=== PATIENT | female | born 1995 | race African-American/Black ===

== ENCOUNTER → 2021-04-17 11:17 | Outpatient (CLI) | payer BC, SELFPAY ==
--- NOTE | ~2021-04-17 | US_ITS ---
EXAMINATION: US OB transvaginal DATE: 04/17/2021 11:47 INDICATION: Spotting during first trimester TECHNIQUE: Real-time pelvic transabdominal and transvaginal ultrasound was performed. COMPARISON: None. FINDINGS: The uterus measures 10.2 x 6.3 x 6.2 cm. There is an intrauterine gestational sac. A yolk sac is identified. heart motion is identified measuring 168 beats per minute (bpm) by M-mode Do ppler. The crown rump length measures 1.6 cm , which correlates with an estimated gestational a ge of 8 weeks and 0 day(s) (+/-) 5 day(s). The right ovary measures 3.5 x 1.6 x 3.1 cm. The left ovary measures 4.5 x 3.1 x 4.8 cm and contains a 3.4 cm cyst. There is normal vascular flow in the ovaries. There is no free fluid in the pelvis. IMPRESSION: 1. Live intrauterine with an estimated gestational age of 8 weeks and 0 day(s) (+/-) 5 day( s) and an estimated delivery date of 11/27/2021. Reviewed, dictated and finalized at location A. IMPRESSION: 1. Live intrauterine with an estimated gestational age of 8 weeks and 0 day(s) (+/-) 5 day(s) and an estimated delivery date of 11/27/2021.
== END ==
PROVIDERS: Visit Provider Obstetrics & Gynecology
DX: O26.851 Spotting complicating pregnancy, first trimester (principal); Z3A.01 Less than 8 weeks gestation of pregnancy
CPT/HCPCS: 76817

== ENCOUNTER → 2021-07-30 10:06 | Outpatient (CLI) | payer BC, SELFPAY ==
--- NOTE | ~2021-07-30 | US_ITS ---
EXAMINATION: US OB /maternal detail EXAM DATE: 07/30/2021 11:06 INDICATION: Encounter for screening, unspecified. 2nd trimester. TECHNIQUE: Pelvic obstetrical transabdominal sonogram was performed by a technologist. There are mu ltiple grayscale and Doppler images available for interpretation. Comparison is made to prior examina tion from 04/17/2021. FINDINGS: There is a single fetus identified in breech transverse presentation with a heart rate of 1 30 beats per minute. The placenta is located in the posterior position. There is no sonographic evid ence of retroplacental hemorrhage identified. There is subjectively expected amount of amniotic fluid . BIOMETRIC DATA: Biparietal diameter (BPD): 5.4 cm ----------------> 22 weeks 6 days. Head circumference (HC): 20.4 cm ----------------> 22 weeks 3 days. Abdominal circumference (AC): 18.0 cm ----------> 22 weeks 6 days. Femur length (FL): 4.2 cm --------------------------> 23 weeks 4 days. These measurements are concordant. HC/AC ratio is 1.13 (The 5th -- 95th percentile range is 1.05-1.21. Estimated weight is 561 g +/- 84 g. This is the 54th percentile when the currently reported cl inical gestation age 22 weeks 6 days, clinical estimated date of delivery (HOLA-OPE) 11/27/2021 is used. estimated gestational age based on measurements from this exam is 23 weeks 0 days, with an est imated date of delivery (HOLA-AUA) 11/26. ANATOMIC SURVEY: The following anatomy is identified and is sonographically normal in appearance: Cerebral ventricles Cerebellum Cisterna magna Nuchal fold Cavum septum pellucidum CTL-spine Four-chamber heart LVOT Diaphragm Stomach Kidneys Bladder Three-vessel cord Cord insertion Nose/lips Extremities IMPRESSION: 1. Single fetus in vertex presentation with heart rate 130 beats per minute. 2. Estimated weight of 1561 grams, 54th percentile using the currently reported clinical gesta tion age of 22 weeks 6 days, HOLA(OPE) 11/27. 3. Visualized anatomy normal. Poorly visualized right ventricular outflow tract due to p osition. Reviewed, dictated and finalized at location B. IMPRESSION: 1. Single fetus in vertex presentation with heart rate 130 beats per minute. 2. Estimated weight of 1561 grams, 54th percentile using the currently r eported clinical gestation age of 22 weeks 6 days, HOLA(OPE) 11/27. 3. Visualized anatomy normal. Poorly visualized right ventricular outflo w tract due to position.
== END ==
PROVIDERS: Visit Provider Obstetrics & Gynecology
DX: Z34.92 Encounter for supervision of normal pregnancy, unspecified, second trimester (principal); Z3A.22 22 weeks gestation of pregnancy
CPT/HCPCS: 76805

== ENCOUNTER → 2021-10-08 13:54 | Outpatient (CLI) | payer BC, SELFPAY ==
--- NOTE | ~2021-10-08 | US_ITS ---
EXAMINATION: US OB follow up DATE: 10/08/2021 15:13 INDICATION: Size greater than dates during third trimester TECHNIQUE: Real-time ultrasound of the pelvis was performed. The interpreting radiologist was not pre sent for the study. COMPARISON: 07/30/2021 FINDINGS: There is a single living fetus in breech presentation. The placenta is posterior. car diac activity and movement are noted. heart rate is 163 beats per minute (bpm). The amnio tic fluid index is 14.9 cm which is normal. The following biometric data were obtained: Biparietal diameter (BPD): 8.5 cm; head circumference (HC): 29.8 cm; abdominal circumference (AC): 29 .5 cm; femur length (FL): 6.1 cm. These measurements are concordant. Estimated weight is 2105 g +/- 315 g, which correlates with the 46th percentile when 11/27/2021 i s used as estimated date of delivery. As single measurements, these parameters are each equal to the following estimated gestational ages w ith ranges of +/- 2 standard deviations: BPD: 34 weeks 2 days ( 31 weeks 2 days - 37 weeks 3 days). HC: 33 weeks 1 days ( 30 weeks 1 days - 36 weeks 0 days). AC: 33 weeks 4 days ( 30 weeks 4 days - 36 weeks 3 days). FL: 31 weeks 5 days ( 28 weeks 5 days - 34 weeks 5 days). estimated gestational age based solely on measurements from this exam is 33 weeks 1 days +/- 2 weeks 2 days. IMPRESSION: 1. Single living fetus in breech presentation. 2. Estimated weight is 2105 g +/- 315 g, which correlates with the 46th percentile when 2 is used as estimated date of delivery. 3. Normal amniotic fluid index. Reviewed, dictated and finalized at location B. ROLL INSPECTOR IMPRESSION: 1. Single living fetus in breech presentation. 2. Estimated weight is 2105 g +/- 315 g, which correlates with the 46th p ercentile when 11/27/2021 is used as estimated date of delivery. 3. Normal amniotic fluid index.
== END ==
PROVIDERS: Visit Provider Obstetrics & Gynecology
DX: O36.63X0 Maternal care for excessive fetal growth, third trimester, not applicable or unspecified (principal); Z3A.33 33 weeks gestation of pregnancy
CPT/HCPCS: 76816

== ENCOUNTER → 2021-10-30 11:49 | Outpatient (CLI) | payer BC, SELFPAY ==
--- NOTE | ~2021-10-30 | US_ITS ---
EXAMINATION: US right upper quadrant DATE: 10/30/2021 12:10 INDICATION: Right upper quadrant abdominal pain. Third trimester of . TECHNIQUE: Multiple grayscale and Doppler ultrasound images of the abdomen were obtained. COMPARISON: None FINDINGS: The pancreas is obscured by bowel gas. The liver is normal without focal lesion. No liver s urface nodularity. There is normal flow in main portal vein. The gallbladder is normal in size. No ga llstones or gallbladder wall thickening. There was no sonographic Rivers sign. The common duct is nor mal and measures 3 mm. IMPRESSION: 1. Normal right upper quadrant ultrasound. Reviewed, dictated and finalized at location A. [employer] LINGUIST
== END ==
PROVIDERS: Visit Provider Obstetrics & Gynecology Gynecology
DX: R10.11 Right upper quadrant pain (principal)
CPT/HCPCS: 76705

== ENCOUNTER 2021-11-24 21:01 | Inpatient (IN) | payer BC, SELFPAY ==
[2021-11-24 21:33] VITALS: BP 120/77; PULSE 119; RESP 18; TEMP 37.3
[2021-11-24 21:36] VITALS: BMI 32.1
[2021-11-24 21:47] LABS: Basophils Percent Auto 0.2 % (0.2-1.2); Eosinophils Percent Auto 0.4 % (0-4.4); Hematocrit 37.7 % (37.0-47.0); Immature Granulocyte Absolute 0.11 K/mm3 (0.00-0.031); Lymphocytes Absolute Auto 1.41 K/mm3 (0.9-3.2); Lymphocytes Percent Auto 12.7 % (18.3-44.2); Mean Corpuscular HGB Conc 34.5 g/dl (32-36); Mean Corpuscular Hemoglobin 31.9 pg (26-34); Mean Corpuscular Volume 92.6 fl (80-100); Mean Platelet Volume 10.8 fl (7.4-10.4); Monocytes Absolute Auto 0.9 K/mm3 (0.1-0.6); Monocytes Percent Auto 7.7 % (2.6-8.5); Neutrophils Absolute Auto 8.7 K/mm3 (1.3-6.7); Platelet Count Result 203 k/mm3 (150-375); Red Blood Count 4.07 M/mm3 (4.2-5.4); White Blood Count 11.1 K/mm3 (4.5-10.0)
[2021-11-24] MEDS: DINOPROSTONE 10 MG VAG INSERT VAGINAL (21:58)
[2021-11-24 22:02] VITALS: BP 117/83; PULSE 117
[2021-11-24 22:31] VITALS: BP 103/65; PULSE 111
--- NOTE | 2021-11-24 22:31 | LDADM ---
This patient, Brittany Gilliland, was admitted to Labor/Delivery/Recovery 107 on 11/24/21 at 21:01. Plans for labor, pain management and were discussed with patient. Patient/family oriented to hospital policies and general routines including ID bracelet, bed and alarms, visiting hours, pain management, procedures, bathroom and other care routines, personal items, smoking policy, room service/diet and guest tray routines, security routines, and visiting hours. Patient/Family are encouraged to report perceived risks to care and to ask questions if they do not understand what they are told or what they should do. See OBIX for further documentation.
[2021-11-24 23:01] VITALS: BP 100/64; PULSE 120
--- NOTE | 2021-11-24 23:25 | WPDANESEPP ---
Anes - Eval Pre Procedure Procedure: labor epidural Date/Time: 11/24/21 23:25 Surgeon: casandar Preop Diagnosis: pain during labor Pre Op Diagnosis: IOL Patient Data Age: 26 Gender: F Height: 1.63 m Weight: 85 kg Last Vital Signs Temp 37.3 C 11/24/21 21:33 Pulse 120 H 11/24/21 23:01 Resp 18 11/24/21 21:33 BP 100/64 11/24/21 23:01 Allergies Allergy/AdvReac Type Severity Reaction Status Date / Time No Known Allergies Allergy Verified 10/29/21 13:44 Home Medications Medication Instructions Recorded Confirmed Type PNV cmb#95-ferrous fumarate-FA 1 tablet PO DAILY 10/29/21 10/29/21 History [] aspirin 81 mg PO DAILY 10/29/21 10/29/21 History ferrous sulfate [Iron (ferrous 325 mg PO DAILY 10/29/21 10/29/21 History sulfate)] Laboratory Tests 11/24/21 11/24/21 21:29 21:29 WBC 11.1 K/mm3 H K/mm3 (4.5-10.0) RBC 4.07 M/mm3 L M/mm3 (4.2-5.4) Hgb 13.0 g/dL g/dL (12.0-15.0) Hct 37.7 % % (37.0-47.0) MCV 92.6 fl fl (80-100) MCH 31.9 pg pg (26-34) MCHC 34.5 g/dl g/dl (32-36) RDW 14.0 % % (11.5-14.5) Plt Count 203 k/mm3 k/mm3 (150-375) MPV 10.8 fl H fl (7.4-10.4) Immature Gran % (Auto) 1.0 % H % (0-0.5) Neut % (Auto) 78.0 % H % (45.5-73.1) Lymph % (Auto) 12.7 % L % (18.3-44.2) [place] % (Auto) 7.7 % % (2.6-8.5) Eos % (Auto) 0.4 % % (0-4.4) Baso % (Auto) 0.2 % % (0.2-1.2) Lymph # (Auto) 1.41 K/mm3 K/mm3 (0.9-3.2) [place] # (Auto) 0.9 K/mm3 H K/mm3 (0.1-0.6) Eos # (Auto) 0.0 K/mm3 K/mm3 (0-0.3) Baso # (Auto) 0.0 K/mm3 K/mm3 (0.0-0.1) Abs Immat Gran (auto) 0.11 K/mm3 H K/mm3 (0.00-0.031) Absolute Neuts (auto) 8.7 K/mm3 H K/mm3 (1.3-6.7) Absolute Nucleated RBC 0.0 K/mm3 K/mm3 (0.0-0.012) Nucleated RBC % 0.0 % % (0.0-0.2) RPR Pending Patient hx anesthesia problems: none Family hx anesthesia problems: pseudocholinesterase deficiency Results Review: All pre-operative results and documents have been reviewed as part of the pre-operative evaluation. [facility] Past Medical History Medical History (Updated 11/24/21 @ 23:26 by Felecia Vogel CRNA) Intrauterine Obesity (BMI 30-39.9) Family History Family History (Updated 10/29/21 @ 13:[address] RN) Father Hypertension Mother Hypertension Ovarian cyst Sibling Ovarian cyst Social History Social History Smoking status: Never smoker Second hand tobacco smoke exposure: No Substance use: never Spiritual care concerns: No Exam Day of Procedure 11/24/21 23:25
[2021-11-24 23:31] VITALS: BP 118/69; PULSE 108
[2021-11-25] VITALS (21 sets, daily range): BP systolic 78–134; BP diastolic 27–81; PULSE 95–115; RESP 16–22; TEMP 36.6–37.6
--- NOTE | 2021-11-25 09:54 | WPDOBADMIT ---
Obstetrics - Admit Note Admission Note: record reviewed. No pertinent additions to the history and/or any subsequent changes in the physical findings that are not consistent with the expected course of the were found. AROM clear fluids /-2 vertex Additions to the history and/or subsequent changes in the physical findings follow. None.
[2021-11-25 11:48] LABS: Rapid Plasma Reagin Non-Reactive (NonReactive)
[2021-11-25] MEDS: LACTATED RINGERS 1,000 ML 125 ML IV CONT (18:36)
[2021-11-25] MEDS: OXYTOCIN 30 UNITS/NS 500 ML 30 UNITS/500 ML BAG 6 UNITS IV CONT (18:36)
[2021-11-26] VITALS (144 sets, daily range): BP systolic 97–144; BP diastolic 47–98; PULSE 96–156; RESP 16–18; TEMP 36.6–38.3; O2SAT 94–100
[2021-11-26] MEDS: fentaNYL CITRATE INJ (*CRX) 100 MCG/2 ML VIAL 50 MCG IV PUSH (00:05)
[2021-11-26] MEDS: LACTATED RINGERS 1,000 ML 125 ML IV CONT ×2 (02:02→04:40)
[2021-11-26] MEDS: fentaNYL CITRATE INJ (*CRX) 100 MCG/2 ML VIAL IV PUSH (02:15)
[2021-11-26] MEDS: AMPICILLIN 2 GM/NS 100 ML 2 GM/100 ML BAG IVPB (04:15)
--- NOTE | 2021-11-26 07:54 | P.PCNOB_ITS ---
OB - Delivery Note Procedure Delivery date: 11/26/21 events: Labor Induction Intrapartal events: None Induction method: AROM and per cervidil protocol Delivery monitor: external FHT and external uterine Route of delivery: Laceration Description: Perineal - 2nd Degree Delivery repair: vicryl Quantitative Blood Loss (ml): 280 Anesthesia type: Epidural Disposition: floor [place] Baby Date of : 11/26/21 Weeks of gestation at delivery: 40 gender: Female presentation: vertex position: Left Occiput Anterior Placenta delivery description: Spontaneous cord vessel description: 3 Vessels and Clamped/Cut
[2021-11-26] MEDS: OXYTOCIN 30 UNITS/NS 500 ML 30 UNITS/500 ML BAG 125 UNITS IV CONT (08:00)
--- NOTE | 2021-11-26 12:15 | PC.NURSE ---
Mother called out for assist with feeding, reporting some difficulties with latch and tenderness with first feeding. Infant is able to freely thrust tongue past gum ridge and flange both lips. Skin is intact on both nipples, no redness and bruising noted. Reviewed feeding cues, frequencies, duration of feedings, feeding elimination flow sheet, and signs of adequate intake. Demonstrated stimulation techniques to wake for feeding. Assisted with to breast. Reviewed positioning/alignment in cross cradle, holding breast in ?U? hold and guided asymmetrical latch on. Reviewed rational for each. Several attempts before was able to latch correctly. nursed eagerly with steady draws and occasional swallowing noted, some pausing noted. Reviewed signs of a correct latch, effective nursing and suck swallow ratio. Suggested mother stimulate while feeding to increase stimulation for milk supply, for increased intake and to assist with maintaining deep latch. would slip to shallow latch causing tenderness. Demonstrated how to adjust latch more deeply while feeding as needed. Mother reports she can feel the difference in latch with less tenderness. Mother grimaces at times with nipple pain, infant appears to be latch correctly and mother does not report change if attempts made to adjust latch. more deeply. Nipple care reviewed of lanolin after feedings, warm compresses as needed. Instructed mother to call out for RN assistance if she is unable to latch for feeding or she has discomfort with nursing. Instructed feeding should be initiated three hours from start of last feeding or if feeding cues are noted before. Mother voiced understanding of information shared.
[2021-11-26] MEDS: IBUPROFEN 600 MG TABLET PO (22:58)
[2021-11-27] VITALS: BP 130/84; PULSE 94; RESP 18; TEMP 36.5
[2021-11-27 04:00] VITALS: BP 113/76; PULSE 82; RESP 18; TEMP 36.8
[2021-11-27 04:48] LABS: Hematocrit 31.7 % (37.0-47.0); Hemoglobin 10.6 g/dL (12.0-15.0)
[2021-11-27 11:00] VITALS: PULSE 82; RESP 18; O2SAT 99
--- NOTE | 2021-11-27 11:11 | PM.OBPNVD ---
OB - PN: Subj Subjective Date/time seen: 11/27/21 10:05 Narrative: PPD#1 Brittany reports doing well today. Her bleeding is light. Her pain is controlled. She is tolerating regular diet, voiding, passing gas, and ambulating without issues. She is breast feeding. She would like to go home tomorrow. OB - PN: Obj Data Labs CBC & Chem 7: 11/27/21 04:02 Labs: Laboratory Results - last 24 hr 11/27/21 04:02 Hgb 10.6 L Hct 31.7 L OB - PN A/P Assessment and Plan (1) Normal vaginal delivery: Code(s): O80 - Encounter for full-term uncomplicated delivery Status: Acute Plan day: 1 Plan: routine care and discharge home (tomorrow) Comments: - Pelvic rest; take meds as prescribed - ER return precautions: fever, n/v/abd pain, bleeding, HTN Time Spent With Patient Time: Total time spent is greater than 50% in coordination of care (as documented) at patient's floor/unit and/or counseling patient: Review of Systems Constitutional: Constitutional: Denies chills, Denies fever(s) and Denies headache(s) Eyes: Eyes: Denies change in vision ENT: Denies dizziness and Denies headache(s) Cardiovascular: Cardiovascular: Denies chest pain, Denies palpitations and Denies dyspnea Respiratory: Respiratory: Denies cough and Denies dyspnea Gastrointestinal: Gastrointestinal: Denies nausea and Denies vomiting Neurologic: Denies dizziness and Denies headache(s) Endocrine: Endocrine: Denies palpitations Exam Const: General: cooperative, comfortable and no acute distress Orientation/consciousness: patient oriented x3 Resp: Effort & Inspection: normal respiratory effort Auscultation: clear to auscultation bilaterally Cardio: Rate: regular rate GI: Inspection: non-distended GI Palp: No abdominal tenderness and Yes Soft to palpation Auscultation: normal bowel sounds : Other: fundus firm Skin: General skin exam: normal color Neuro: General: patient oriented x3 Extrem: General: normal to inspection Psych: Appearance: grossly normal Affect: normal affect Attitude: cooperative
[2021-11-27] MEDS: DOCUSATE SODIUM 100 MG CAPSULE PO (16:06)
[2021-11-27] MEDS: IBUPROFEN 600 MG TABLET PO (16:06)
[2021-11-27 19:16] VITALS: BP 116/79; PULSE 88; RESP 18; TEMP 36.4
--- NOTE | 2021-11-27 22:42 | PC.NURSE ---
11/27/2021 at 1999 Patient viewed the discharge video Mother & Baby Care, The First Two Weeks . Patient was given the opportunity and encouraged to ask questions. Patient verbalized understanding of information shared and has been given the mother/baby guide for home reference.
[2021-11-28 07:25] VITALS: BP 133/80; PULSE 76; RESP 18; TEMP 36.1
--- NOTE | 2021-11-28 08:15 | PM.OBDSVD ---
DS: Admitting Diagnosis Discharge Date 11/28/21 Admitting Diagnosis Induction of labor DS: Discharge Diagnosis Discharge Diagnosis (1) Normal vaginal delivery: Code(s): O80 - Encounter for full-term uncomplicated delivery Status: Acute OB - DS: Summary OB Procedures : Ultrasound OB Procedures Intrapartum: Spontaneous Vag Delivery OB Procedures: : None Peripartum Data Delivery Method: Natural Vaginal Laceration Description: Perineal - 2nd Degree complications: none 1: Gender: Female Disposition of : home Status at Discharge Functional status at discharge: independent ambulation Overall status at discharge: patient is back to baseline Time Spent with Patient Time attestation: Total time spent providing and/or coordinating discharge services: Exam Const: General: cooperative, healthy appearing, comfortable and no acute distress Orientation/consciousness: patient oriented x3 Resp: Effort & Inspection: normal respiratory effort Auscultation: clear to auscultation bilaterally Cardio: Rate: regular rate GI: Inspection: non-distended GI Palp: No abdominal tenderness and Yes Soft to palpation Auscultation: normal bowel sounds : Other: fundus firm Skin: General skin exam: normal color Neuro: General: patient oriented x3 Extrem: General: normal to inspection Psych: Appearance: grossly normal Affect: normal affect Attitude: cooperative DS: Data Data Completed and Pending Pending studies at discharge: Pending at discharge 11/26/21 07:29 Surgical [PTH] Routine Discharge Plan Discharge Attending physician on discharge: Tonya Joyce Discharging Clinician: Tonya oJyce Anticipated Discharge Date/Time: 11/28/21 11:00 Patient Disposition: Home, Self-Care Activity: may shower, may drive after 2 weeks and pelvic rest Diet: regular Patient Instructions: Antibiotic Form Stand Alone Forms: General Discharge Information Follow-up/Referrals: Sky Ordoñez MD [Physician] - 6 Weeks Discharge Medications: New acetaminophen [Mapap (acetaminophen)] 325 mg Tablet 650 mg PO Q6H PRN (Reason: Mild Pain (1-3) Or Headache) 10 Days Qty: 60 RF: 0 docusate sodium 100 mg Capsule 100 mg PO BID PRN (Reason: Constipation) 30 Days Qty: 60 RF: 0 ibuprofen 600 mg Tablet 600 mg PO Q6H PRN (Reason: Cramping) 10 Days Qty: 40 RF: 0 Continued PNV cmb#95-ferrous fumarate-FA [] 28 mg iron- 800 mcg Tablet 1 tablet PO DAILY 90 Days Qty: 90 RF: 0 ferrous sulfate [Iron (ferrous sulfate)] 325 mg (65 mg iron) Tablet 325 mg PO DAILY 90 Days Qty: 90 RF: 0 Discontinued aspirin 81 mg Tablet 81 mg PO DAILY RF: 0 Date of admission: 11/24/21 21:01 Primary Care Provider: PHYSICIAN,HEAD OF MUSIC Admitting Provider: Sky Ordoñez Attending physician on admission: Sky Ordoñez Condition: Stable
[2021-11-28] MEDS: DOCUSATE SODIUM 100 MG CAPSULE PO (08:30)
[2021-11-28] MEDS: IBUPROFEN 600 MG TABLET PO (08:30)
== END 2021-11-28 11:51 | disposition home or self-care (01) | DRG 807 ==
LOC: ANHOB2 11-27 11:13 → ANHLDR 12-01 09:42 → ANHOB2 12-01 09:42
PROVIDERS: Admitting Provider Obstetrics & Gynecology; Visit Provider Obstetrics & Gynecology
DX: O76 Abnormality in fetal heart rate and rhythm complicating labor and delivery (principal); Z37.0 Single live birth; O70.1 Second degree perineal laceration during delivery; Z3A.40 40 weeks gestation of pregnancy
CPT/HCPCS: 36415; 85014; 85018; 85025; 86592; 86850; 86900; 86901; 88307; A9270; J0290; J2590; J2795; J3010; J7120

== ENCOUNTER → 2023-03-03 15:39 | Outpatient (CLI) | payer BC, SELFPAY ==
--- NOTE | ~2023-03-03 | US_ITS ---
EXAMINATION: US OB <=14 wk fetus w TV DATE: 03/03/2023 16:00 INDICATION: First trimester dating TECHNIQUE: Real-time pelvic transabdominal and transvaginal ultrasound was performed. COMPARISON: None. FINDINGS: The uterus measures 7.5 x 5.5 x 7.5 cm. There is an intrauterine gestational sac. A yolk sa c is identified. heart motion is identified measuring 175 beats per minute (bpm) by M-mode Dopp ler. The crown rump length measures 2 cm, which correlates with an estimated gestational age of 8 weeks and 4 day(s) (+/-) 5 day(s). The left ovary is not visualized however no left adnexal abnormality is seen. The right ovary measure s 2.7 x 1.7 x 1.5 cm. There is normal vascular flow in the right ovary. There is no free fluid in the pelvis. IMPRESSION: 1. Live intrauterine with an estimated gestational age of 8 weeks and 4 day(s) (+/-) 5 day( s) and an estimated delivery date of 10/09/2023. Reviewed, dictated and finalized at location B. IMPRESSION: 1. Live intrauterine with an estimated gestational age of 8 weeks and 4 day(s) (+/-) 5 day(s) and an estimated delivery date of 10/09/2023.
== END ==
PROVIDERS: PCP Registered Nurse; Visit Provider Registered Nurse
DX: Z34.90 Encounter for supervision of normal pregnancy, unspecified, unspecified trimester (principal); Z3A.08 8 weeks gestation of pregnancy
CPT/HCPCS: 76801; 76817

== ENCOUNTER → 2023-06-22 14:53 | Outpatient (CLI) | payer BC, SELFPAY ==
--- NOTE | ~2023-06-22 | US_ITS ---
EXAMINATION: US soft tissue head and neck DATE: 06/22/2023 15:03 INDICATION: Localized swelling, mass or lump along the right jawline TECHNIQUE: Multiple grayscale and Doppler ultrasound images of the region of concern along the right mandible were obtained. COMPARISON: None FINDINGS: 14 x 8 x 13 mm solid hypoechoic nodule in the superficial subcutaneous tissues at the region of ryne rn. Small amount of internal vascular flow is seen on color Doppler. No discernible internal echogeni c hilum to suggest a lymph node. IMPRESSION: 1. Indeterminate 1.4 cm solid subcutaneous nodule at the region of concern. Would consider ultrasound -guided core needle biopsy for further evaluation. Reviewed, dictated and finalized at location A. IMPRESSION: 1. Indeterminate 1.4 cm solid subcutaneous nodule at the region of concern. Woelsie ld consider ultrasound-guided core needle biopsy for further evaluation.
== END ==
PROVIDERS: PCP Registered Nurse; Visit Provider Registered Nurse
DX: R22.0 Localized swelling, mass and lump, head (principal)
CPT/HCPCS: 76536

== ENCOUNTER 2023-10-11 16:05 | Inpatient (IN) | payer BC, SELFPAY ==
[2023-10-11] VITALS (10 sets, daily range): BP systolic 89–130; BP diastolic 55–79; PULSE 74–175; TEMP 36.6–36.7; BMI 32.7
[2023-10-11 17:03] LABS: Basophils Percent Auto 0.4 % (0.2-1.2); Eosinophils Percent Auto 0.4 % (0-4.4); Hematocrit 35.3 % (37.0-47.0); Hemoglobin 11.6 g/dL (12.0-15.0); Immature Granulocyte Absolute 0.14 K/mm3 (0.00-0.031); Immature Granulocyte Percent A 1.5 % (0-0.5); Lymphocytes Absolute Auto 1.39 K/mm3 (0.9-3.2); Lymphocytes Percent Auto 14.6 % (18.3-44.2); Mean Corpuscular HGB Conc 32.9 g/dl (32-36); Mean Corpuscular Hemoglobin 29.7 pg (26-34); Mean Corpuscular Volume 90.5 fl (80-100); Mean Platelet Volume 10.7 fl (7.4-10.4); Monocytes Absolute Auto 0.8 K/mm3 (0.1-0.6); Monocytes Percent Auto 8.1 % (2.6-8.5); Neutrophils Absolute Auto 7.1 K/mm3 (1.3-6.7); Platelet Count Result 189 k/mm3 (150-375); Red Cell Distribution Width 13.7 % (11.5-14.5); White Blood Count 9.5 K/mm3 (4.5-10.0)
[2023-10-11] MEDS: OXYTOCIN 30 UNITS/NS 500 ML 30 UNITS/500 ML BAG IV CONT (17:22)
[2023-10-11] MEDS: LACTATED RINGERS 1,000 ML 125 ML IV CONT ×2 (17:23→21:46)
--- NOTE | 2023-10-11 18:05 | WPDANESEPP ---
Anes - Eval Pre Procedure Procedure: Labor epidural Date/Time: 10/11/23 18:05 Surgeon: Myles Preop Diagnosis: Abdominal pain with contractions Pre Op Diagnosis: IOL Patient Data Age: 28 Gender: F Height: 1.63 m Weight: 86.5 kg Last Vital Signs Temp 98.1 F 10/11/23 17:00 Pulse 91 10/11/23 18:00 BP 111/65 10/11/23 18:00 O2 Del Method Room Air 10/11/23 16:41 Allergies Allergy/AdvReac Type Severity Reaction Status Date / Time No Known Allergies Allergy Verified 10/10/23 08:43 Home Medications Medication Instructions Recorded Confirmed Type vit no.95-ferrous 1 tablet PO DAILY 90 days #90 tabs 11/27/21 10/11/23 Rx fumarate 28 mg-folic acid 800 mcg tablet () cholecalciferol (vitamin D3) 10 10 mcg PO DAILY 08/16/23 10/11/23 History mcg (400 unit) capsule Laboratory Tests 10/11/23 16:55 WBC 9.5 K/mm3 (4.5-10.0) RBC 3.90 L M/mm3 (4.2-5.4) Hgb 11.6 L g/dL (12.0-15.0) Hct 35.3 L % (37.0-47.0) MCV 90.5 fl (80-100) MCH 29.7 pg (26-34) MCHC 32.9 g/dl (32-36) RDW 13.7 % (11.5-14.5) Plt Count 189 k/mm3 (150-375) MPV 10.7 H fl (7.4-10.4) Immature Gran % (Auto) 1.5 H % (0-0.5) Neut % (Auto) 75.0 H % (45.5-73.1) Lymph % (Auto) 14.6 L % (18.3-44.2) [place] % (Auto) 8.1 % (2.6-8.5) Eos % (Auto) 0.4 % (0-4.4) Baso % (Auto) 0.4 % (0.2-1.2) Lymph # (Auto) 1.39 K/mm3 (0.9-3.2) [place] # (Auto) 0.8 H K/mm3 (0.1-0.6) Eos # (Auto) 0.0 K/mm3 (0-0.3) Baso # (Auto) 0.0 K/mm3 (0.0-0.1) Abs Immat Gran (auto) 0.14 H K/mm3 (0.00-0.031) Absolute Neuts (auto) 7.1 H K/mm3 (1.3-6.7) Absolute Nucleated RBC 0.0 K/mm3 (0.0-0.012) Nucleated RBC % 0.0 % (0.0-0.2) RPR Pending Blood Type O Positive Antibody Screen Negative : gestational age HCG: positive Patient hx anesthesia problems: none Family hx anesthesia problems: none Results Review: All pre-operative results and documents have been reviewed as part of the pre-operative evaluation. [facility] Past Medical History Medical History History of vaginal delivery Migraines Obesity (BMI 30-39.9) and not yet delivered Family History Family History Father Hypertension Mother Hypertension Ovarian cyst Depression Brachydactyly type A2 associated with mutation in BMP2 gene Sibling Ovarian cyst Grandparent Hypertension Heart disease Cerebrovascular accident Ovarian cancer Maternal Grandma Other Breast cancer Maternal Aunt Stomach cancer Paternal Uncle Social History Social History Smoking status: Never smoker Second hand tobacco smoke exposure: No Alcohol intake: never Substance use: never Lack of Transportation: No Lack of Food: Never True Current Housing: I Have Housing Concerned About Future Housing: No Difficulty Paying Gas/Electric Bills: No Difficulty Paying for Meds: No Currently Unemployed: No Education: Master's Degree or Higher Difficulty w/ Childcare or Family Care: No Living arrangements: with family Occupation/Education: occupation Gender identity (if verbalized by the patient): Female Sexual Orientation (if Verbalized by the Patient): Straight or Heterosexual Spiritual care concerns: No Exam Day of Procedure 10/11/23 18:05 Patient weight: overweight
--- NOTE | 2023-10-11 21:48 | PM.IMHP ---
H&P: HPI History of Present Illness Date/Time: 10/11/23 21:48 Chief Complaint: Induction of labor Narrative: Patient at 40 weeks admitted for MIL. PNC uncomplicated. Labs reviewed. Review of Systems Review of Systems: All systems reviewed & are unremarkable except as noted in HPI and below Constitutional: Constitutional: Reports no additional constitutional complaints and Denies headache(s) Eyes: Eyes: Denies spots in vision ENT: Reports system reviewed and no additional complaints, except as documented and Denies headache(s) Cardiovascular: Cardiovascular: Denies chest pain and Denies dyspnea Respiratory: Respiratory: Denies dyspnea Gastrointestinal: Gastrointestinal: Reports no additional gastrointestinal complaints Genitourinary: Genitourinary: Reports amenorrhea Musculoskeletal: Musculoskeletal: Reports no additional musculoskeletal complaints Integumentary/Breasts: Skin/Breast: Denies breast mass and Denies rash Neurologic: Denies headache(s) Psychiatric: Psychiatric: Reports no additional psychiatric complaints PMFSH Past Medical History Medical History History of vaginal delivery Migraines Obesity (BMI 30-39.9) and not yet delivered Family History Family History Father Hypertension Mother Hypertension Ovarian cyst Depression Brachydactyly type A2 associated with mutation in BMP2 gene Sibling Ovarian cyst Grandparent Hypertension Heart disease Cerebrovascular accident Ovarian cancer Maternal Grandma Other Breast cancer Maternal Aunt Stomach cancer Paternal Uncle Social History Social History Smoking status: Never smoker Second hand tobacco smoke exposure: No Alcohol intake: never Substance use: never Lack of Transportation: No Lack of Food: Never True Current Housing: I Have Housing Concerned About Future Housing: No Difficulty Paying Gas/Electric Bills: No Difficulty Paying for Meds: No Currently Unemployed: No Education: Master's Degree or Higher Difficulty w/ Childcare or Family Care: No Living arrangements: with family Occupation/Education: occupation Gender identity (if verbalized by the patient): Female Sexual Orientation (if Verbalized by the Patient): Straight or Heterosexual Spiritual care concerns: No Meds Home Medications and Allergies Home Medications Medication Instructions Recorded Confirmed Type vit no.95-ferrous 1 tablet PO DAILY 90 days #90 tabs 11/27/21 10/11/23 Rx fumarate 28 mg-folic acid 800 mcg tablet () cholecalciferol (vitamin D3) 10 10 mcg PO DAILY 08/16/23 10/11/23 History mcg (400 unit) capsule Allergies Allergy/AdvReac Type Severity Reaction Status Date / Time No Known Allergies Allergy Verified 10/10/23 08:43 Vital Signs Vital Signs - 24 hr 10/11/23 16:41 10/11/23 17:30 10/11/23 17:00 Temperature 98.1 F Pulse Rate 96 Blood Pressure 113/71 Oxygen Delivery Room Air 10/11/23 18:00 10/11/23 18:31 10/11/23 19:00 Temperature Pulse Rate 91 85 90 Blood Pressure 111/65 110/68 97/55 L Oxygen Delivery 10/11/23 19:31 Temperature Pulse Rate 175 H Blood Pressure 89/58 L Oxygen Delivery Exam Const: General: no acute distress Eyes: General: appearance normal, both eyes and all related structures Resp: Effort & Inspection: normal respiratory effort Cardio: Rate: regular rate GI: Other: Gravid no fundal tenderness no right upper quadrant pain Skin: General skin exam: no rashes or lesions noted Neuro: Cognition (Neuro): normal cognition Extrem: General: normal to inspection Psych: Mental Status: mental status grossly normal H&P: Results Labs Labs: Short CBC 10/11/23 Range/Units 16:55 WBC 9.5 (4
[2023-10-12] VITALS (127 sets, daily range): BP systolic 70–137; BP diastolic 43–106; PULSE 72–173; RESP 16; TEMP 36.4–37.3; O2SAT 97–100
[2023-10-12] MEDS: LACTATED RINGERS 1,000 ML 125 ML IV CONT (05:45)
[2023-10-12] MEDS: LACTATED RINGERS 1,000 ML 999 ML IV CONT (08:13)
[2023-10-12] MEDS: OXYTOCIN 30 UNITS/NS 500 ML 30 UNITS/500 ML BAG 125 UNITS IV CONT (12:11)
[2023-10-12 12:43] LABS: Rapid Plasma Reagin Non-Reactive (NonReactive)
[2023-10-12] MEDS: ACETAMINOPHEN 325 MG TABLET 650 MG PO ×2 (13:34→21:28)
[2023-10-12] MEDS: IBUPROFEN 600 MG TABLET PO ×2 (13:34→21:28)
[2023-10-12] MEDS: BENZOCAINE 20% AER SPR (*SP) 56 GM CAN 1 SPRAY TOPICAL (13:36)
[2023-10-12] MEDS: WITCH HAZEL 40 PADS 1 PAD TOPICAL (13:36)
--- NOTE | 2023-10-12 14:36 | OBPPTRN ---
Patient transferred to post room #291 via wheelchair. Support person present. Oriented to unit, room, information board, rooming in, admission packet and security measures. Patient verbalizes understanding.
[2023-10-12] MEDS: DOCUSATE SODIUM 100 MG CAPSULE PO (17:36)
[2023-10-13 04:50] VITALS: BP 109/66; PULSE 68; RESP 16; TEMP 36.6; O2SAT 100
[2023-10-13 04:58] LABS: Hematocrit 31.7 % (37.0-47.0); Hemoglobin 10.6 g/dL (12.0-15.0)
[2023-10-13] MEDS: ACETAMINOPHEN 325 MG TABLET 650 MG PO ×2 (05:30→13:25)
[2023-10-13] MEDS: IBUPROFEN 600 MG TABLET PO ×2 (05:30→13:26)
[2023-10-13 09:15] VITALS: BP 108/65; PULSE 78; RESP 16; TEMP 36.4; O2SAT 100
[2023-10-13] MEDS: MULTIVIT/MIN/PREN/FOL AC/IRON TABLET 1 TAB PO (09:23)
[2023-10-13] MEDS: DOCUSATE SODIUM 100 MG CAPSULE PO (09:23)
--- NOTE | 2023-10-13 09:47 | PM.OBPNVD ---
OB - PN: Subj Subjective Date/time seen: 10/12/23 0830 Cat 1 tracing, cervix 3.5/60/-3, AROM clear. Continue pitocin. OB - PN: Obj Data Labs 10/13/23 04:35 Labs: Laboratory Results - last 24 hr 10/11/23 10/13/23 16:55 04:35 Hgb 10.6 L Hct 31.7 L RPR Non-reactive OB - PN A/P Time Spent With Patient Time: Total time spent is greater than 50% in coordination of care (as documented) at patient's floor/unit and/or counseling patient:
--- NOTE | 2023-10-13 09:49 | P.PCNOB_ITS ---
OB - Vaginal Delivery Note Procedure Delivery date: 10/13/23 Events: Elective Induction of Labor Induction method: Per Pitocin Protocol Delivery augmentation: Rupture of Membranes Delivery monitor: External FHT Route of delivery: Episiotomy description: None Specimen: No Quantitative Blood Loss (ml): 200 Anesthesia type: Epidural Disposition: Floor Complications: No immediate complications Narrative: She was admitted the evening of October 11 for induction of labor her cervix was noted to be dilated. She did have an occasional variable and had episode of tachycardia which did improve with IV hydration. She was eventually started on Pitocin. The morning of October 12 she was 3.5 cm Pitocin was continued she did have assisted rupture of membranes with clear fluid she then progressed to active labor she did receive an epidural upon request. She did progress to complete and pushed several times and delivered a female over an intact perineum. The nose and mouth of the infant was suction at the perineum and the anterior shoulders were delivered with gentle traction and the rest the infant was delivered. The infant was vigorously crying upon delivery and placed on maternal abdomen delayed cord clamping for 60 seconds until the cord was a pulsatile and then the cord was doubly clamped and cut. Placenta delivered spontaneously and intact there was a small area of separation at the introitus which did not require suture hemostasis obtained with silver nitrate. [place] Baby Date of : 10/12/23 Time of : 11:41 Weeks of gestation at delivery: 40 gender: Female Weight (pounds): 8 Weight (ounces): 0 presentation: vertex position: Right Occiput Anterior Placenta delivery description: Spontaneous Cord Vessel Description: 3 Vessels score one minute: 8 score five minutes: 9 [facility] Delivery Billing Delivery Delivery: Delivery Charge
--- NOTE | 2023-10-13 10:29 | PM.OBPNVD ---
OB - PN: Subj Subjective Date/time seen: 10/13/23 10:29 Interval history: Hemorrhoid tenderness improving. She request discharge today. Patient comments: pain well controlled, tolerating diet and other (Decreasing lochia.) baby status: doing well and nursing well OB - PN: Obj Data Labs 10/13/23 04:35 Labs: Laboratory Results - last 24 hr 10/11/23 10/13/23 16:55 04:35 Hgb 10.6 L Hct 31.7 L RPR Non-reactive OB - PN A/P Plan day: 1 Plan: routine care Comments: Patient doing well. She request discharge. Discharge precautions discussed. Time Spent With Patient Time: Total time spent is greater than 50% in coordination of care (as documented) at patient's floor/unit and/or counseling patient: Exam Psych: Affect: normal affect Other: Abd: fundus firm below umbilicus, nontender Perineum: healing Ext: nontender
--- NOTE | 2023-10-13 13:50 | PC.NURSE ---
[id number] Introductions were made, then consulted with patient to assess needs related to . Mother led the conversation with her?plans to feed?her infant, the?experience so far and the 18 months of success with her first child. Resources provided for inpatient and outpatient services with the feeding sheet, laminated handouts in the room (waking infant, [id number], feeding cues), mom/baby guide and name written on the white board. Parents voiced understanding of information, demonstrated understanding and will call if there is a request for assistance. Reported to the Primary RN.
[2023-10-16 10:22] VITALS: BP 114/54; PULSE 89; RESP 18; TEMP 37.2; O2SAT 100
--- NOTE | 2023-11-06 10:35 | PM.OBDSVD ---
DS: Admitting Diagnosis Discharge Date 10/13/23 Admitting Diagnosis Induction of labor DS: Discharge Diagnosis Discharge Diagnosis (1) Vaginal delivery: Code(s): O80 - Encounter for full-term uncomplicated delivery Status: Acute OB - DS: Summary Hospital Course Hospital Course: She was admitted for induction of labor. She was noted to be in early labor. Labor was augmented with Pitocin. She had an uncomplicated vaginal delivery. She did well . Baby did well . She had adequate pain control. She requested discharge to home on day 1. OB Procedures : Ultrasound OB Procedures Intrapartum: Spontaneous Vag Delivery OB Procedures: : None Peripartum Data Delivery Method: Natural Vaginal Episiotomy description: None complications: none Status at Discharge Functional status at discharge: independent ambulation Time Spent with Patient Time attestation: Total time spent providing and/or coordinating discharge services: Exam Const: General: cooperative Orientation/consciousness: oriented to person, oriented to place and oriented to time HENMT: Face/Nose/Sinus: Normal external nose present Eyes: General: appearance normal, both eyes and all related structures Resp: Effort & Inspection: normal respiratory effort GI: Inspection: normal to inspection Skin: General skin exam: normal color Neuro: General: oriented to person, oriented to place and oriented to time Extrem: General: normal to inspection and no calf tenderness Psych: Appearance: grossly normal Mental Status: mental status grossly normal Discharge Plan Discharge Attending physician on discharge: Shamar Bueno Consulting providers: Brent Tillman Discharging Clinician: Shamar Bueno Patient Disposition: Home, Self-Care Activity: may shower and pelvic rest Diet: regular Discharge Instructions: Education: Mom and Baby Guide Given to: Mother Follow-Up: Call your delivering provider's office for an appointment to be seen in: 4 Weeks Mom and baby should come to the [facility] for the follow-up appointment. Appointment Date/Time: October 16, 2023 at 10:00 am What to expect at your follow-up visit: Physical Assessment Call [phone] if you are unable to keep your appointment time. BREAST CARE: * Wear a snug supportive bra. * For engorgement discomfort: Breast Feeding: * Apply warm moist washcloths * Express milk as needed to relieve engorgement * Wear loose clothing * For sore nipples: * Identify correct latch-on * Apply warm moist washcloths before and after nursing * Air dry nipples after nursing * May apply Lansinoh cream to nipples EPISIOTOMY/PERINEAL CARE: * Until bleeding stops, use your loren bottle after urinating * Change your pad frequently throughout the day * You may take sitz baths several times a day (fill your bathtub with warm water and soak for 20 minutes.) Do NOT bathe in the water * No tub baths until seen by your physician - You may shower ACTIVITY: * Rest as much as possible. * Do not exercise or lift anything heavier than your baby (such as laundry or other children.) * Avoid stairs or driving as much as possible. * Do not put anything into the vagina. No douching, tampons, or sexual activity until seen by physician. NOTIFY PHYSICIAN IF YOU HAVE ANY QUESTIONS OR IF ANY OF THE FOLLOWING SYMPTOMS OCCUR: * If your episiotomy or incision becomes red, swollen, or more painful than what you have experienced in the hospital. * If your vaginal bleeding becomes foul smelling. * If your vaginal bleeding becomes more heavy than a period or if your bleeding changes from pink to bright red. However, you may pass an occasional walnut-sized clot once or twice for the first week . * If you experience a sharp, shooting pain
== END 2023-10-13 17:45 | disposition home or self-care (01) | DRG 807 ==
LOC: ANHLDR 16:16 → ANHOB2 10-12 14:43
PROVIDERS: Admitting Provider Obstetrics & Gynecology; PCP Registered Nurse; Visit Provider Obstetrics & Gynecology
DX: O76 Abnormality in fetal heart rate and rhythm complicating labor and delivery (principal); Z37.0 Single live birth; O99.214 Obesity complicating childbirth; Z3A.40 40 weeks gestation of pregnancy
CPT/HCPCS: 36415; 85014; 85018; 85025; 86592; 86850; 86900; 86901; A9270; J2590; J2795; J7120

== ENCOUNTER 2023-11-08 10:11 | Outpatient (CLI) | payer BC, SELFPAY ==
--- NOTE | ~2023-11-08 | US_ITS ---
EXAMINATION: US biopsy lymph node DATE: 11/08/2023 10:59 INDICATION: Disorder of the skin and subcutaneous tissue. Right lower face mass. TECHNIQUE: The procedure including the risks, benefits, and alternatives was discussed with the patie nt. Risks discussed included bleeding and infection. The patient understood the risks and agreed to p roceed. The skin overlying the right lower face was prepped and draped in usual sterile fashion. Ane sthetic was administered with 1% lidocaine subcutaneously. An 18 gauge core biopsy needle was then u sed to obtain 3 core biopsy specimens under continuous sonographic guidance. The entry site was clean ed and dressed. There were no immediate complications. FINDINGS: Ultrasound images demonstrate the needle in a 1.8 x 1.8 x 1.2 cm subcutaneous hypoechoic ma ss in right lower face. IMPRESSION: 1. Ultrasound-guided core needle biopsy of a 1.8 cm subcutaneous mass in right lower face. Reviewed, dictated and finalized at location A. OID ARCHITECT
== END 2023-11-08 10:12 | disposition home or self-care (01) ==
PROVIDERS: PCP Family Medicine; Visit Provider Otolaryngology
DX: D23.9 Other benign neoplasm of skin, unspecified (principal)
CPT/HCPCS: 38505; 76942; 88305

== ENCOUNTER 2024-02-06 01:54 | Day surgery (SDC) | payer OTHER, SELFPAY ==
[2024-01-31 10:51] VITALS: BMI 30.9
--- NOTE | 2024-01-31 10:55 | PC.NURSE ---
Report to the Outpatient Waiting Room, entrance under the green pavilion located off [facility], at time 1030 on date 02/06/24. Planned Procedure Time: 1230. Time changes happen often and if your time is changed the preop area will call you the afternoon before. - You and your visitor will be asked to self-screen and do not enter if you have any COVID symptoms. - A mask is optional within the hospital at this time. Patients may have clear liquids (water, carbonated beverages, clear teas, apple juice) until 3 hours prior to surgery with a maximum of 20 ounces. - No food from midnight until time of surgery Take the following medications with a SIP of water the morning of surgery: CONTROL DO NOT STOP ANY OF YOUR OTHER PRESCRIPTION MEDICATIONS PRIOR TO SURGERY ?EXCEPT THE FOLLOWING Medications to discontinue per physician: VITAMINS Date to take last dose: 02/02/24 Please no make-up, nail eritrean, hairspray, perfume, deodorant, or body powder the day of surgery. No jewelry (including any body piercings) or valuables the day of surgery, leave them at home. Please take a shower or bath the night before, or the morning of, surgery with an antibacterial soap. Wear comfortable, loose fitting clothing. - Jewelry must be removed prior to entering the operating room. Rings and piercings that are not removed may be cut off. - The hospital will not accept responsibility for valuables. - Please leave all valuables, including medications, at home the day of surgery. If you are going home after surgery, a licensed chuck wagon driver must drive you home. - NO public transportation without another adult if you receive anesthesia. - We recommend that an adult stay with you for 24 hours following discharge. - We also recommend that you do not drive, make important decision, drink alcoholic beverages, or take any drugs that were not prescribed by your health care provider for at least 24 hours after your discharge time. Follow any additional instructions given to you from your surgeon. If you or anyone in your household have experienced Covid symptoms in the past week, please notify your surgeon or the nurse liaison at the phone number below for possible testing. Telephone instructions given to PT - DANILO FRANCISCO and asked if any additional questions and then verbalized understanding. Patient advised to call surgeon office or pre surgery nurse liaison [phone] if any additional questions.
--- NOTE | 2024-02-05 11:49 | WPDANESEPPF ---
Anes - Initial Pre Proc Eval Procedure: Operation Date: 02/06/24 12:45 Proposed Procedures p Excision of Right Facial Lesion Over Mandible - Lucio Lock MD Date/Time: 02/05/24 11:49 Surgeon: Lucio Lock MD Pre Op Diagnosis: right facial lesion (2cm) Patient Data Age: 28 Gender: F Height: 1.63 m Weight: 81.65 kg Allergies Allergy/AdvReac Type Severity Reaction Status Date / Time No Known Allergies Allergy Verified 02/06/24 10:55 Home Medications Medication Instructions Recorded Confirmed Type vit no.95-ferrous 1 tablet PO DAILY 90 days #90 tabs 11/27/21 01/31/24 Rx fumarate 28 mg-folic acid 800 mcg tablet () norethindrone (contraceptive) 0.35 0.35 mg PO DAILY #84 tabs 11/14/23 01/31/24 Rx mg tablet (Jojo) Patient hx anesthesia problems: none Family hx anesthesia problems: none Results Review: All pre-operative results and documents have been reviewed as part of the pre-operative evaluation. [facility] Past Medical History Medical History History of vaginal delivery x2 Migraines Obesity (BMI 30-39.9) and not yet delivered Family History Family History Father Hypertension Mother Hypertension Ovarian cyst Depression Brachydactyly type A2 associated with mutation in BMP2 gene Sibling Ovarian cyst Grandparent Hypertension Heart disease Cerebrovascular accident Ovarian cancer Maternal Grandma Other Breast cancer Maternal Aunt Stomach cancer Paternal Uncle Social History Social History Smoking status: Never smoker Second hand tobacco smoke exposure: No Alcohol intake: never Substance use: never Substance use type: does not use Lack of Transportation: No Lack of Food: Never True Current Housing: I Have Housing Concerned About Future Housing: No Difficulty Paying Gas/Electric Bills: No Difficulty Paying for Meds: No Currently Unemployed: No Education: Master's Degree or Higher Difficulty w/ Childcare or Family Care: No Living arrangements: with family Occupation/Education: occupation Gender identity (if verbalized by the patient): Female Sexual Orientation (if Verbalized by the Patient): Straight or Heterosexual Spiritual care concerns: No Anes - Eval Final PreProcedure Day of Procedure 02/05/24 11:49 Patient weight: obese Heart: regular rate and rhythm Lungs: clear to auscultation Airway: Mallampati scale class II Neurological: alert and oriented Last oral intake: >/= 8 hours ASA classification: II Emergent: no Anesthetic plan: proceed Anesthesia type and monitoring: general LMA and standard monitoring Results Review: All pre-operative results and documents have been reviewed as part of the pre-operative evaluation. Informed Consent: The patient's anesthetic plan and its attendant risks and benefits were discussed with the patient/family/POA. Questions were solicited and answers provided to the satisfaction of the patient/family/POA.
--- NOTE | 2024-02-05 16:54 | PM.IMHP ---
H&P: HPI History of Present Illness Date/Time: 02/05/24 16:54 Chief Complaint: Right facial lesion Narrative: planned procedure Review of Systems Review of Systems: All systems reviewed & are unremarkable except as noted in HPI and below [facility] Past Medical History Medical History History of vaginal delivery x2 Migraines Obesity (BMI 30-39.9) and not yet delivered Family History Family History Father Hypertension Mother Hypertension Ovarian cyst Depression Brachydactyly type A2 associated with mutation in BMP2 gene Sibling Ovarian cyst Grandparent Hypertension Heart disease Cerebrovascular accident Ovarian cancer Maternal Grandma Other Breast cancer Maternal Aunt Stomach cancer Paternal Uncle Social History Social History Smoking status: Never smoker Second hand tobacco smoke exposure: No Alcohol intake: never Substance use: never Substance use type: does not use Lack of Transportation: No Lack of Food: Never True Current Housing: I Have Housing Concerned About Future Housing: No Difficulty Paying Gas/Electric Bills: No Difficulty Paying for Meds: No Currently Unemployed: No Education: Master's Degree or Higher Difficulty w/ Childcare or Family Care: No Living arrangements: with family Occupation/Education: occupation Gender identity (if verbalized by the patient): Female Sexual Orientation (if Verbalized by the Patient): Straight or Heterosexual Spiritual care concerns: No Meds Home Medications and Allergies Home Medications Medication Instructions Recorded Confirmed Type vit no.95-ferrous 1 tablet PO DAILY 90 days #90 tabs 11/27/21 01/31/24 Rx fumarate 28 mg-folic acid 800 mcg tablet () norethindrone (contraceptive) 0.35 0.35 mg PO DAILY #84 tabs 11/14/23 01/31/24 Rx mg tablet (Jojo) Allergies Allergy/AdvReac Type Severity Reaction Status Date / Time No Known Allergies Allergy Verified 01/31/24 10:50 Exam Narrative: right facial lesion Assessment and Plan Assessment and plan (1) Facial lesion: Code(s): L98.9 - Disorder of the skin and subcutaneous tissue, unspecified Status: Acute Assessment and Plan: OR for excision right facial lesion, LMA okay. Risks discussed bleeding infection damage to surrounding structures damage to any structure of the clavicles by myself damage to any structure during induction and maintenance of anesthesia. Patient may develop significant scarring patient may develop postoperative infection. Possible risks to facial nerve. Recurrence of lesion. Need for further procedures. Patient voiced understanding of these risks and agreed. Other complications may include postoperative hematoma seroma necessitating incision and drainage.
[2024-02-06] VITALS (7 sets, daily range): BP systolic 100–120; BP diastolic 54–74; PULSE 63–106; RESP 15–23; TEMP 36.1–36.6; O2SAT 97–100
--- NOTE | 2024-02-06 07:38 | WPDHPUPDATE1 ---
History and Physical Update Update Date/Time: 02/06/24 07:38 History and Physical has been reviewed, including an updated exam of the patient. There are NO changes in the patient's condition. Risks, benefits, and alternatives have been discussed and questions answered. Patient agrees to proceed with procedure.
[2024-02-06] MEDS: ceFAZolin SODIUM 1 GM VIAL 2 GM IV PUSH (11:25)
[2024-02-06] MEDS: LIDO 1%/EPINEPHRINE 1:100,000 20 ML VIAL 5 ML INFILTRATE (11:38)
[2024-02-06] MEDS: LACTATED RINGERS 1,000 ML 30 ML IV CONT (12:17)
--- NOTE | 2024-02-06 12:34 | W.PM.PROC2 ---
Procedure Note - Detailed Date of Procedure 02/06/24 Pre-op Diagnosis right facial lesion (2cm) Post-op Diagnosis Same Procedure Performed Right facial lesion 2.5 cm Surgeon Lucio Lock MD Anesthesia General ( LMA) Indications see above Findings right-sided calcified facial lesion no damage to any visible nerves states superficial to the musculature minimal bleeding very good skin approximation Description of Procedure patient identified consent verified preop. Patient brought to the operating room. Time-out performed. General anesthesia induced LMA secured. Patient prepped draped position procedure confirmed 2nd time-out performed. Lesion identified pre drawn surgical incision much to say the patient was sterile a linear about 3 cm incision was drawn over the lesion approximately 1 cm above the body of the mandible. Fifteen blade utilized to cut through the skin bipolar electrocautery setting of 4 and 5 utilized to coagulate any small bleeding vessels through the skin. Fifteen blade utilized to cut through the dermis as well. Blunt dissection then utilized to carry around the lesion. Lesion was easily removed following blunt dissection no bleeding vessels located. The wound was then copiously irrigated with sterile normal saline about 500 cc. The deep layer was closed with interrupted 4-0 Vicryl sutures approximately 3-4. The dermis was closed with interrupted Vicryl sutures 3-4 as well. A Monocryl running in the dermis 4-0 was then utilized. No knots were utilized. The such good skin approximation the decision was made to apply skin glue. The edges of the Monocryl suture were trimmed. Patient tolerated the procedure very very well there were no complications blood loss about 1 cc. I performed all dictated portions of the procedure. Patient taken to PACU. Estimated Blood Loss 1 Drains No Packing No Pathology Yes Complications No immediate complications Condition Stable Disposition PACU [facility] Billing Surgery - Charge Forward: Surgery Billing
== END 2024-02-06 14:09 | disposition home or self-care (01) ==
PROVIDERS: PCP Family Medicine; Visit Provider Otolaryngology
PROC: (CPT 11443; principal; 2024-02-06 12:15)
DX: D23.39 Other benign neoplasm of skin of other parts of face (principal); E66.9 Obesity, unspecified; Z68.30 Body mass index [BMI] 30.0-30.9, adult
CPT/HCPCS: 11443; 12051; 88305; A9270; J0690; J2250; J3010; J7120

== ENCOUNTER 2025-10-29 09:53 | Outpatient (CLI) | payer OTHER, SELFPAY ==
--- NOTE | ~2025-10-29 | US_ITS ---
EXAMINATION: US OB <= 14 weeks fetus DATE: 10/29/2025 10:20 INDICATION: with inconclusive viability TECHNIQUE: Real-time pelvic ultrasound utilizing transabdominal probe was performed. The interpreting radiologist was not present for the study. COMPARISON: None. FINDINGS: The uterus measures 8.2 x 5.7 x 6.9 cm. There is an intrauterine gestational sac with peripheral 6 mm echogenic likely pole. The 6 mm crown rump length would correlates with an estimated gestational age of 6 weeks and 3 days. There is no discernible heart motion by M-mode Doppler which raises some concern for but at this crown-rump length is not diagnostic for demise. The right ovary measures 3.0 x 2.8 x 1.5 cm. The left ovary measures 3.7 x 3.1 x 2.6 cm. 1.9 cm anechoic likely corpus luteum cyst in the left ovary. Vascular flow identified in both ovaries on color Doppler. There is no free fluid in the pelvis. IMPRESSION: 1. Intrauterine gestational sac with 6 mm pole without discernible heart motion which raises concern for but does not yet diagnostic for demise. Recommend correlation with serial beta-hCG levels and repeat ultrasound as clinically indicated. 2. Gestational age by ultrasound of 6 weeks 3 day(s) +/- 4 day(s) with ultrasound estimated date of delivery ([facility]OLA) of 06/21/2026. Reviewed, dictated and finalized at location [facility]. 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 Intrauterine gestational sac with 6 mm pole without discernible heart motion which raises concern for but does not yet diagnostic for dem ise. Recommend correlation with serial beta-hCG levels and repeat ultrasound as clinically indicated. 2. Gestational age by ultrasound of 6 weeks 3 day(s) +/- 4 day(s) with ultraso und estimated date of delivery (HOLA) of 06/21/2026.
== END 2025-10-29 09:54 | disposition home or self-care (01) ==
PROVIDERS: PCP Obstetrics & Gynecology; Visit Provider Obstetrics & Gynecology
DX: O36.80X0 Pregnancy with inconclusive fetal viability, not applicable or unspecified (principal); Z3A.01 Less than 8 weeks gestation of pregnancy
CPT/HCPCS: 76801

== ENCOUNTER 2025-10-30 01:25 | Day surgery (SDC) | payer OTHER, SELFPAY ==
[2025-10-29 15:08] VITALS: BMI 28.3
--- NOTE | 2025-10-29 15:15 | SUR.PREOP ---
[facility] has started construction of its new state of the art ER which will open Spring 2026. With this, we anticipate parking may be a challenge for some our surgical patients and families. Parking spaces are limited but are available for all Surgical, obstetrics, and ER patients sharing this lot. If you arrive and find you are having a hard time finding a parking space, please note that we understand the challenges, please drive around the hospital and park near Hospital Entrance 1. When you enter this entrance, you can ask a volunteer to direct or take you back to the surgical waiting area to check in. We appreciate everyone?s understanding of these expected challenges while we build for your future. Report to the Outpatient Waiting Room, entrance under the green pavilion located off [address], at time 12:00p.m. on date 10/30/2025. Planned Procedure Time: 2:00p.m..? Time changes happen often and if your time is changed the preop area will call you the afternoon before. - You and your visitor will be asked to self-screen and do not enter if you have any COVID symptoms. Please call surgeon if you need to reschedule. - A mask is optional within the hospital at this time. Patients may have clear liquids (water, carbonated beverages, clear teas, apple juice) until 3 hours prior to surgery with a maximum of 20 ounces. - No food from midnight until time of surgery and no smoking, or chewing tobacco (or any form of nicotine). No chewing gum, candy or mints. Take only the following medications with a SIP of water on the morning of surgery: N/A DO NOT STOP ANY OF YOUR OTHER PRESCRIPTION MEDICATIONS PRIOR TO SURGERY EXCEPT THE FOLLOWING Hold all vitamins and supplements for 3 days per anesthesiologist. Medications to discontinue per physician N/A Date to take last dose N/A Please no make-up, nail kyrgyz, hairspray, perfume, deodorant, or body powder the day of surgery.? No jewelry (including any body piercings) or valuables the day of surgery, leave them at home.? Please take a shower or bath the night before, or the morning of, surgery with an antibacterial soap.? Wear comfortable, loose fitting clothing.? Children are encouraged to wear pajamas. - Jewelry must be removed prior to entering the operating room.? Rings and piercings that are not removed may be cut off. - The hospital will not accept responsibility for valuables.? - Please leave all valuables, including medications, at home the day of surgery. If you are going home after surgery, a licensed sprinkler truck driver must drive you home.? - NO public transportation without another adult if you receive anesthesia. - We recommend that an adult stay with you for 24 hours following discharge. - We also recommend that you do not drive, make important decision, drink alcoholic beverages, or take any drugs that were not prescribed by your health care provider for at least 24 hours after your discharge time. For Pediatric surgeries, we recommend two adults accompany the child home. Follow any additional instructions given to you from your surgeon. Telephone instructions given to Brittany Gilliland and asked if any additional questions and then verbalized understanding. Patient advised to call surgeon office or pre surgery nurse liaison [phone] if any additional questions.
--- OUTSIDE RECORDS SUMMARY | 2025-10-30 01:34 | XMS_ITS | Clinical Summary ---
Author Organization [address] Address [address] [place] [id number] Care Team Providers Care Renewal Specialist Name Role Phone Rivera Brennan MD Primary Care Provider [phone] Shamar Bueno MD Unavailable [phone] Allergies No known active allergies Medications PNV #[id number] acid-dha 35 mg iron-5 mg iron-1 mg capsule Take by mouth daily Active Active Problems Problem Noted Date Diagnosed Date Status post induction of labor 07/18/2025 Amenorrhea 07/18/2025 Facial lesion 07/18/2025 Lump on face 07/18/2025 Obesity (BMI 30-39.9) 07/18/2025 Encounter for full-term uncomplicated delivery 0 07/18/2025 Well adult exam 07/16/2024 Assessment & Plan (07/16/2024 8:52 AM CDT): A(n) yearly well adult visit has been performed today. Brittany Francisco is not up to date on screening tests. She is in need of hep c and Cholesterol screening. She is up to date on needed preventative vaccinations. We discussed healthy lifestyle habits, educational material has been given. Medications reviewed, changes documented as per the medical record and discussed with patient along with risks vs benefits. Specific topics reviewed: drugs, ETOH, and tobacco, importance of regular dental care, importance of regular exercise, importance of varied diet, limit TV, media violence, minimize junk food, and seat belts. Return in 1 year Nodule of cheek 07/11/2023 Encounter for medical examination to establish c are 07/11/2023 Assessment & Plan (07/11/2023 11:43 AM CDT): A(n) initial well adult visit has been performed today. Brittany Francisco is up to date on screening tests. She is in need of None- no screening indicated at this time. She is not up to date on needed preventative vaccinations; She is in need of HPV. We discussed healthy lifestyle habits, educational material has been given. Medications reviewed, changes documented as per the medical record and discussed with patient along with risks vs benefits. Awaiting FNA of buccal mass Continuing follow up with Dr. Bueno Return in 1 year Irregular menstruation, unspecified 11/15/2016 Dysmenorrhea 11/15/2016 Comments Yes Encounters Date Type Department Care Team Description 10/03/2025 7:43 AM STOREROOM CLERK - 10/03/2025 11:59 PM STOREROOM CLERK Hospital Encounter [facility] Medical Office Bl 1 Breast [facility] [address] [place] [address] Other signs and symptoms in breast; Family history of malignant neoplasm of breast; Discharge from right nipple Discharge Disposition: Discharge to home or self care from Last 3 Months Immunizations Immunization Administration Dates Next Due DTaP 10/12/2001, 9,12/19/1998,09/02,1997,1997 Hep A, Unspecified 01/03/2007,06/14/2006 Hep B, Unspecified 12/19/1998,1997, 997 HiB 09/02/1999, 9,09/02/1998,10/03,1997 IPV 10/12/2001, 9,12/19/1998,10/03,1997 Influenza, Quadrivalent, Mary l Culture-based MDCK, Preservative Free, Antibiotic Free, Intramuscular 09/04/2023,10/16/2020 Influenza, Quadrivalent, Spl it, Preservative Free, Intramuscular 10/31/2022 MMR 10/12/2001,09/02/1998 Meningococcal MCV4P (Menactra) 08/01/2014,2008 PPD TEST 04/06/2015,11/21/2000 Pfizer SARS-CoV-2 Monovalent Vaccination (12+ Yrs) PURPLE 02/20/2021 Tdap 09/10/2023,06/11/2008 Varicella 06/17/2009,06/11/1998 Surgical History Surgery Date Site/Laterality Comments WISDOM TOOTH EXTRACTION 11/27/2015 - 11/26/2016 Bilatera l Family History Medical History Relation Name Comments Hypertension Father Obesity Father Prediabetes Father Heart attack Maternal Grandfather Mental illness Maternal Grandfather BRCA 1 or 2 Maternal Grandmother Ovarian cancer Maternal Grandmother BRCA 1 or 2 Mother Hypertension Mother Obesity Mother Ovarian cysts Mother Breast cancer Mother's Sister Diabetes Other Father's siblings Hypertension Paternal Grandfather Stroke Paternal Grandfather Diabetes type II Paternal Grandmother Hypertension Paternal Grandmother Obesity Paternal Grandmother Stroke Paternal Grandmother Ovarian cysts Sister Relation Name Status Comments Father Alive Maternal Grandfather Maternal Grandmother Mother Alive Mother's Sister Alive Other Father's siblings Paternal Grandfather Paternal Grandmother Sister Alive Social History Tobacco Use Types Packs/Day Years Used Date Smoking Tobacco: Never Smokeless Tobacco: Never Tobacco Cessation:Counseling Given: Not Answered Alcohol Use Standard Drinks/Week Comments Never 0 (1 standard drink = 0.6 oz pur e alcohol) PHQ-2 Answer Date Recorded PHQ-2 Total Score (If total score is 3 or more points, staff should administer the PHQ-9) 0 07/18/2025 AUDIT-C Answer Date Recorded Q1: How often do you have a drink containing alcohol? Never 07/18/2025 Q2: How many drinks containi ng alcohol do you have on a typical day when you are drinking? Patient does not drink Q3: How often do you have si x or more drinks on one occasion? 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 Not on file Not on file Not on file Obstetrics History Para Term AB IAB SAB Ectopic Multiple Livin g Live Births 4 2 Date Outcome GA Total Labor Labor/2nd/3rd Weight Sex Type Anes PTL Felicity A1 A5 Name Clin Current Last Filed Vital Signs Vital Sign Reading Time Taken Comments Blood Pressure 110/70 07/18/2025 8:19 AM CDT Pulse 94 07/18/2025 8:19 AM CDT Temperature 36.2 C (97.1 F) 07/18/2025 8:19 AM CDT Respiratory Rate 16 07/18/2025 8:19 AM CDT Oxygen Saturation 98% 07/18/2025 8:19 AM CDT Inhaled Oxygen Concentration - - Weight 78.5 kg (173 lb) 07/18/2025 8:19 AM CDT Height 162.6 cm (5' 4) 07/18/2025 8:19 AM CDT Body Mass Index 29.7 07/18/2025 8:19 AM CDT Plan of Treatment Health Maintenance Due Date Last Done Comments HPV Vaccines (1 - 3-dose SCDM series) 2024 Covid-19 Vaccine ( season) 2025 09/04/2023, 10/31/2022, 10/16/2021, Additional history exists Influenza Vaccine (#1) 2025 , 10/31/2022, 10/16/2020 Depression Screening 07/18/2026 07/18/2025, 01/07/2025, 07/16/2024, Additional history exists Regular Well Visit/Exam 18-64 07/18/2026 07/18/2025, 07/16/2024, 07/11/2023 Cervical Cancer Screening 11/26/2026 Po stponed from 1997 (Patient declined, but will receive in the future) DTaP/Tdap/Td Vaccine (8 - Td or Tdap) 09/10/2033 09/10/2023, 06/11/2008, 10/12/2001, Additional history exists Hepatitis B Screening Completed 12/19/1998 , 1997, 1997 Varicella Vaccines Completed 06/17/2009, 06/11/1998 Hepatitis C Screening Completed 07/16/2024 Pneumococcal vaccine <65 Aged Out No longer eligible based on patient's age to complete this topic Procedures Procedure Name Priority Date/Time Associated Diagnosis Comments US BREAST RIGHT LIMITED Schedule Routine, Read Routine (OP Routine) 10/03/2025 8:05 AM STOREROOM CLERK Discharge from right nipple HEPATITIS C ANTIBODY Routine 07/16/2024 9:03 AM CDT Need for hepatitis C screening test from Last 3 Months or Most Recently Relevant to Health Maintenance Results * US Breast Right Limited (10/03/2025 8:05 AM STOREROOM CLERK) Anatomical Region Laterality Modality Breast Right Ultrasound 10/03/2025 8:39 AM STOREROOM CLERK Impressions 10/03/2025 8:39 AM STOREROOM CLERK Enlarged ducts with debris within the right breast. OVERALL FINAL ASSESSMENT: BI-RADS Category 2: Benign. RECOMMENDATION: 1. Annual screening mammography is recommended once patient will reach age of 40. 2. Clinical follow-up is recommended and follow-up with another breast ultrasound if another bleed interval development. Also testing for BRCA is advised. Patient was counseled and explained the findings by the reading radiologist. Electronically signed by: Betty Riggs M.D. Narrative 10/03/2025 8:39 AM STOREROOM CLERK EXAMINATION: RIGHT BREAST ULTRASOUND HISTORY: Patient is a 30-year-old female who just started her third . She experienced a single episode of the right breast nipple discharge which was bloody. Several relatives were tested for BRCA and were positive. Patient was not tested, she was told to wait until age of 32. COMPARISON: There is no comparison available. TECHNIQUE: Directed ultrasound evaluation of the RIGHT breast was performed. ULTRASOUND FINDINGS: The breast parenchyma appears of appropriate echogenicity. The retroareolar ducts are dilated, as expected with the , but filled with debris only, no intraductal mass is identified. us Provider Transcribed Order IMG MAMMO PROCEDURES Final Result * Hepatitis C antibody Blood (07/16/2024 9:03 AM CDT) Hep C Ab Nonreactive Nonreactive Comment: Interpretive Data Nonreactive: Antibodies to HCV not detected. Does NOT exclude the possibility of recent exposure to HCV. Equivocal: Equivocal for HCV antibodies. Supplemental molecular testing will be automatically performed to determine infection status in accordance with current CDC screening recommendations. Reactive: Positive for HCV antibodies. This may represent current or past HCV infection. Supplemental molecular testing will be automatically performed to determine current infection status in accordance with current CDC screening recommendations. Interpretive data was last revised on 2020. Blood 07/16/2024 9:03 AM CDT 07/16/2024 2:30 PM CDT Rivera Brennan MD LAB MICROBIOLOGY - GENERAL ORDERABLES Final Result Performing Organization Address City/State/ZIP Co dc Phone Number [facility] [phone] [place] [address] from Last 3 Months or Most Recently Relevant to Health Maintenance Insurance [facility] CHOICE PLUS Care Teams Renewal Specialist Relationship Specialty Start Date End Date Rivera Brennan MD [address] [facility] [address] [place] [address] PCP - General Family Medicine 07/11/23 Shamar Bueno MD [id number] [facility] [address] [facility] [address] [place] [address] Referring Physician Obstetrics and Gynecology 07/11/23
--- OUTSIDE RECORDS SUMMARY | 2025-10-30 01:34 | XMS_ITS | Clinical Summary ---
Author Organization [facility] Address [address] [place] [address] Phone Care Team Providers Care Electrical Transmission Engineer Name Role Phone Unavailable Primary Care Provider Unavailabl e Social History Tobacco Use Types Packs/Day Years Used Date Smoking Tobacco: Never Assessed Comments Unknown Sex and Gender Information Value Date Recorded Sex Assigned at Not on file Legal Sex Female 10:06 AM CDT Gender Identity Not on file Sexual Orientation Not on file Plan of Treatment Health Maintenance Due Date Last Done Comments CERVICAL CANCER SCREENING 2018 HPV/Cotest (21-29) 2018 PAP SMEAR 2018 DTAP/TDAP/TD VACCINES (7 - T d or Tdap) 06/11/2018 06/11/2008, 10/12/2001, 09/02/1999, Additional history exists HPV VACCINES (1 - 3-dose SCD M series) 2024 INFLUENZA VACCINE (#1) 2025 10/31/2022, 2019 COVID-19 Vaccine (2 - 2024-2 6 season) 2025 02/20/2021 HEPATITIS B VACCINES Completed 12/19/1998, 1997, 1997 Insurance [facility] [employer] CHOICE
[2025-10-30 12:10] VITALS: BP 122/71; PULSE 99; TEMP 36.9; O2SAT 100
--- NOTE | 2025-10-30 12:25 | P.HP_ITS ---
H&P: HPI History of Present Illness Date/Time: 10/30/25 12:25 Chief Complaint: demise Narrative: 30 y/o admitted for suction dilation and curettage due to demise. By LMP she would be 10 weeks. She has had two ultrasounds. Her first ultrasound on 10/15/25 showed size less than dates, heart tone 116. She had a follow up ultrasound on 10/29/25 and no heart tones detected, no growth pole. She was informed of the diagnosis of non viable . She has been given options of expectant management versus medication versus dilation and curettage and risk benefits of each discussed and she opted for dilation and curettage. I performed a bedside ultrasound today confirmed small pole no heart tones. Review of Systems Review of Systems: All systems reviewed & are unremarkable except as noted in HPI and below Cardiovascular: Cardiovascular: Reports no additional cardiovascular complaints, Denies chest pain and Denies dyspnea Respiratory: Respiratory: Reports no additional respiratory complaints and Denies dyspnea Gastrointestinal: Gastrointestinal: Reports abdominal pain, Denies change in bowel habits, Denies diarrhea, Denies nausea and Denies vomiting Genitourinary: Genitourinary: Reports pelvic pain Musculoskeletal: Musculoskeletal: Reports back pain Integumentary/Breasts: Skin/Breast: Reports system reviewed and no additional complaints, except as docu Neurologic: Reports system reviewed and no additional complaints, except as documented PMFSH Past Medical History Medical History Benign tumor of skin of face Migraines and not yet delivered History of vaginal delivery x2 Obesity (BMI 30-39.9) Family History Family History Father Hypertension Mother Hypertension Ovarian cyst Depression Brachydactyly type A2 associated with mutation in BMP2 gene Sibling Ovarian cyst Grandparent Hypertension Heart disease Cerebrovascular accident Ovarian cancer Maternal Grandma Other Breast cancer Maternal Aunt Stomach cancer Paternal Uncle Social History Social History Smoking status: Never smoker Second hand tobacco smoke exposure: No Alcohol intake: never Substance use: never Substance use type: does not use Lack of Transportation: No Lack of Food: Never True Current Housing: I Have Housing Concerned About Future Housing: No Difficulty Paying Gas/Electric Bills: No Difficulty Paying for Meds: No Currently Unemployed: No Education: Master's Degree or Higher Difficulty w/ Childcare or Family Care: No Living arrangements: with family Occupation/Education: occupation Gender identity (if verbalized by the patient): Female Sexual Orientation (if Verbalized by the Patient): Straight or Heterosexual Spiritual care concerns: No Meds Home Medications and Allergies Home Medications ?Medication ?Instructions ?Recorded ?Confirmed ?Type vit no.95-ferrous 1 tablet PO DAILY 90 days # 90 tabs 11/27/21 10/29/25 Rx fumarate 28 mg-folic acid 800 mcg tablet () Allergies Allergy/AdvReac Type Severity Reaction Status Date / Time No Known Allergies Allergy Verified 10/29/25 15:07 Exam Const: Orientation/consciousness: oriented to person and oriented to place HENMT: Head: normal to inspection Eyes: General: appearance normal, both eyes and all related structures Resp: Effort & Inspection: normal respiratory effort Auscultation: clear to auscultation bilaterally Cardio: Rate: regular rate Rhythm: regular rhythm GI: Inspection: normal to inspection GI Palp: No Rebound tenderness present Neuro: General: oriented to person and oriented to place Cognition (Neuro): normal cognition Extrem: General: normal to inspection Psych: Appearance: grossly normal and well kempt Assessment and Plan Assessment and plan (1) Missed with demise before 20 completed weeks of gestation: Code(s): O02.1 - Missed Status: Acute Assessment and Plan: Questions answered. She has opted for suction dilation and curettage.
[2025-10-30] MEDS: ACETAMINOPHEN 500 MG TABLET 1000 MG PO (12:50)
--- NOTE | 2025-10-30 13:01 | WPDHPUPDATE1 ---
History and Physical Update Update Date/Time: 10/30/25 13:01 History and Physical has been reviewed, including an updated exam of the patient. There are NO changes in the patient's condition. Risks, benefits, and alternatives have been discussed and questions answered. Patient agrees to proceed with procedure.
[2025-10-30 13:08] VITALS: BMI 28.7
--- NOTE | 2025-10-30 13:20 | P.PNAN_ITS ---
Anes - Initial Pre Proc Eval Procedure: Operation Date: 10/30/25 14:00 Proposed Procedures p Suction Dilation and Curettage - Shamar Bueno MD Date/Time: 10/30/25 13:20 Surgeon: Shamar Bueno MD Pre Op Diagnosis: missed ab Patient Data Age: 30 Gender: F Height: 1.63 m Weight: 75.9 kg Last Vital Signs Temp 36.9 C 10/30/25 12:10 Pulse 99 10/30/25 12:10 BP 122/71 10/30/25 12:10 Pulse Ox 100 10/30/25 12:10 O2 Del Method Room Air 10/30/25 12:10 Allergies Allergy/AdvReac Type Severity Reaction Status Date / Time No Known Allergies Allergy Verified 10/30/25 13:13 Home Medications ?Medication ?Instructions ?Recorded ?Confirmed ?Type vit no.95-ferrous 1 tablet PO DAILY 90 days # 90 tabs 11/27/21 10/30/25 Rx fumarate 28 mg-folic acid 800 mcg tablet () Patient hx anesthesia problems: none Family hx anesthesia problems: none Results Review: All pre-operative results and documents have been reviewed as part of the pre- operative evaluation. [facility] Past Medical History Medical History Benign tumor of skin of face Migraines and not yet delivered History of vaginal delivery x2 Obesity (BMI 30-39.9) Family History Family History Father Hypertension Mother Hypertension Ovarian cyst Depression Brachydactyly type A2 associated with mutation in BMP2 gene Sibling Ovarian cyst Grandparent Hypertension Heart disease Cerebrovascular accident Ovarian cancer Maternal Grandma Other Breast cancer Maternal Aunt Stomach cancer Paternal Uncle Social History Social History Smoking status: Never smoker Second hand tobacco smoke exposure: No Alcohol intake: never Substance use: never Substance use type: does not use Lack of Transportation: No Lack of Food: Never True Current Housing: I Have Housing Concerned About Future Housing: No Difficulty Paying Gas/Electric Bills: No Difficulty Paying for Meds: No Currently Unemployed: No Education: Master's Degree or Higher Difficulty w/ Childcare or Family Care: No Living arrangements: with family Occupation/Education: occupation Gender identity (if verbalized by the patient): Female Sexual Orientation (if Verbalized by the Patient): Straight or Heterosexual Spiritual care concerns: No Anes - Eval Final PreProcedure Day of Procedure 10/30/25 13:20 Patient weight: overweight Heart: regular rate and rhythm Lungs: clear to auscultation Airway: Mallampati scale class II Neurological: alert and oriented Last oral intake: >/= 8 hours ASA classification: II Emergent: no Anesthetic plan: proceed Anesthesia type and monitoring: general GIVS and standard monitoring Results Review: All pre-operative results and documents have been reviewed as part of the pre- operative evaluation. Informed Consent: The patient's anesthetic plan and its attendant risks and benefits were discussed with the patient/family/POA. Questions were solicited and answers provided to the satisfaction of the patient/family/POA.
[2025-10-30] MEDS: ceFAZolin 2 GM in SODIUM CHLORIDE 0.9% IV 50 ML 100 ML IVPB (13:54)
[2025-10-30] MEDS: LIDOCAINE 1% LOCAL INJ 10 ML VIAL INFILTRATE (13:54)
--- NOTE | 2025-10-30 14:12 | S_PTH ---
PATIENT: Brittany Gilliland LOC: [facility] U#:[id number] AGE/SX: 30/F ROOM: RE10/30/[address]: Shamar Bueno MD : 1995 BED: DIS: 10/30/2025 SPEC #: [id number] RECD: 10/30/25 14:30 STATUS: SONA REQ #: [id number] KRISTY: 10/30/25 14:[address]: Shamar Bueno DEPT: [facility] Surgical RECD BY: Jelly Chance ENTERED: 10/30/25 14:30 SP TYPE: Surgical OTHR DR: Rivera BrennanMD Tissues: A - Products of Conception Procedures: Hematoxylin and Eosin Stain Gross and Microscopic Level 4
[2025-10-30] MEDS: KETOROLAC 15 MG/ML VIAL (*BKC) IV PUSH (14:16)
--- NOTE | 2025-10-30 14:16 | W.PM.PROC2 ---
Procedure Note - Detailed Date of Procedure 10/30/25 Pre-op Diagnosis missed ab Post-op Diagnosis Same Procedure Performed Suction dilation and curettage Surgeon Shamar Bueno MD Anesthesia MAC and Local Indications demise Findings moderate tissue obtained Description of Procedure after informed consent was obtained patient was taken to operating room and adequate IV sedation was administered. Straight catheter was performed and 100 cc of urine obtained. She was placed in high lithotomy position and prepped and draped in sterile fashion attention was turned to the vagina speculum was inserted. Single-tooth tenaculum placed on the anterior lip of the cervix. 10 cc of 1% lidocaine plain was injected at the cervical vaginal interface at the 2 and 5 and 8 and 10 position. The uterus was sound to 10 cm. A size 8 curved curette was used for suction. This was passed 3 times until minimal tissue was obtained. A sharp curettage was performed and a small amount of tissue obtained and the suction was passed again small amount of tissue. The uterine cavity was noted to have good cry. Tenaculum removed, site hemostatic. Cervix os hemostatic. Speculum removed. Patient tolerated procedure well. Sponge count correct. Patient was taken to recovery room in stable condition. Estimated Blood Loss 50 Drains No Packing No Pathology Yes (products of conception) Complications No immediate complications Condition Stable Disposition Same day
[2025-10-30 14:20] VITALS: BP 91/45; PULSE 71; RESP 14; O2SAT 99
[2025-10-30] MEDS: LACTATED RINGERS 1,000 ML 30 ML IV CONT (14:20)
[2025-10-30] MEDS: fentaNYL CITRATE INJ (*CRX) 100 MCG/2 ML VIAL 25 MCG IV PUSH (14:43)
[2025-10-30 14:50] VITALS: BP 99/63; PULSE 66; RESP 16; O2SAT 100
[2025-10-30] MEDS: oxyCODONE HCL (*CRX) 5 MG TAB IR PO (15:16)
[2025-10-30 15:20] VITALS: BP 98/64; PULSE 67; RESP 16
[2025-10-30 15:49] VITALS: BP 100/66; PULSE 68; RESP 16
== END 2025-10-30 16:05 | disposition home or self-care (01) ==
PROVIDERS: PCP Family Medicine; Visit Provider Obstetrics & Gynecology
PROC: (CPT 59820; principal; 2025-10-30 14:00)
DX: O02.1 Missed abortion (principal)
CPT/HCPCS: 59820; 88305; J0690; A9270; J1100; J1885; J2003; J2250; J2405; J2704; J3010; J7120

== ENCOUNTER 2025-11-18 11:41 | Outpatient (CLI) | payer OTHER, SELFPAY ==
--- NOTE | ~2025-11-18 | US_ITS ---
EXAMINATION: US pelvic complete w TV INDICATION: Missed . Looking for retained products of conception. Comparison:10/29/2025 TECHNIQUE: Multiple transabdominal and endovaginal sonographic images of the pelvis performed. FINDINGS: The uterus measures 8.2 x 4.8 x 5.7 cm. Uterus is retroverted. Endometrium is thickened and heterogeneous measuring 1.8 cm with internal echogenic debris and increased vascularity, consistent with retained products of conception. The endometrial complex measures 1.8 cm. The right ovary measures 3.1 x 3.4 x 2 cm and the left ovary measures 4.3 x 2 x 3.3 cm. There are small follicles in each ovary. Normal doppler signal in both ovaries. There is no free fluid in the pelvis. There are no abnormal masses seen on either side. IMPRESSION: 1. Thickened heterogeneous endometrium with internal debris and increased vascularity, consistent with retained products of conception. Reviewed, dictated and finalized at location O. [employer] IMPRESSION: 1. Thickened heterogeneous endometrium with internal debris and increased vascu larity, consistent with retained products of conception.
== END 2025-11-18 11:42 | disposition home or self-care (01) ==
LOC: MICIMG 11:42
PROVIDERS: PCP Obstetrics & Gynecology; Visit Provider Obstetrics & Gynecology
DX: O02.1 Missed abortion (principal)
CPT/HCPCS: 76830; 76856